=== PATIENT | female | born 1995 | race African-American/Black ===

== ENCOUNTER 2025-03-18 16:03 | Emergency (ER) | payer OTHER, MEDICAID ==
[~2025-03-18] VITALS: Ht 182.9 cm; Wt 73.0 kg
[2025-03-18] MEDS: FAMOTIDINE 20MG/2ML VIAL IV ONE (16:36)
[2025-03-18] MEDS: DIPHENHYDRAMINE 50MG/ML VIAL IV ONE ×2 (16:36→21:59)
[2025-03-18] MEDS: METHYLPREDNISOLONE SOD SUCC 125MG/2ML (ACT-O-VIAL) IV ONE (16:37)
[2025-03-18 16:51] LABS: BASOPHILS % 0.3 % (0.0-2.0); EOSINOPHILS % 1.1 % (0.0-5.0); HEMATOCRIT. 35.4 % (36.0-48.0); HEMOGLOBIN. 11.3 g/dL (12.0-16.0); LYMPHOCYTES % 39.4 % (20.0-50.0); MEAN PLATELET VOLUME 7.9 fl (7.4-10.4); MONOCYTES % 7.0 % (2.0-8.0); NEUTROPHILS % 52.2 % (40.0-76.0); PLATELET 269 x1000/uL (130-400); RED BLOOD CELL COUNT 4.55 mill/uL (4.2-5.4); RED CELL DISTRIBUTION WIDTH 14.0 % (11.6-14.6)
[2025-03-18 16:59] LABS: HCG SCREEN NEGATIVE
[2025-03-18 17:01] LABS: CREATININE 0.8 mg/dL (0.6-1.0); UREA NITROGEN BLOOD 9 mg/dL (9-23)
[2025-03-18] MEDS: SODIUM CHLORIDE 0.9% 1,000 ML IV ONE ×2 (17:28→22:17)
[2025-03-18 18:00] VITALS: TEMP 37.1
[2025-03-18] MEDS: ALBUTEROL (0.083%) 2.5MG/3ML NEB HHN ONE (19:39)
[2025-03-18 19:41] VITALS: PULSE 101; RESP 16; O2SAT 99
[2025-03-18] MEDS ORDERED: FAMO-135 MT (20:24)
[2025-03-18] MEDS ORDERED: P50 MT (20:24)
[2025-03-18] MEDS ORDERED: DIPH25CA83 MT (20:24)
[2025-03-18] MEDS ORDERED: HYDR28.485 RC (20:24)
[2025-03-18] MEDS ORDERED: EPIN0.3P3 IM (20:24)
[2025-03-18] MEDS ORDERED: TRIMO EACHEYE (20:36)
[2025-03-18] MEDS ORDERED: CEPH500T MT (20:36)
[2025-03-18 23:04] VITALS: BP 117/72; PULSE 117; RESP 20; O2SAT 100
[2025-03-19] MEDS ORDERED: ERYT1OIN6 EACHEYE (00:11)
== END 2025-03-18 23:09 | disposition home or self-care (01) ==
LOC: ER 16:03
DX: T78.40XA Allergy, unspecified, initial encounter (principal); G43.909 Migraine, unspecified, not intractable, without status migrainosus; Z88.1 Allergy status to other antibiotic agents; Z88.2 Allergy status to sulfonamides; Z79.899 Other long term (current) drug therapy; X58.XXXA Exposure to other specified factors, initial encounter
CPT/HCPCS: 80048; 84703; 85025; 36415; 71045; 94640; 98960; 96361; 96374; 96375; 96376; 99284; J1200; J1308; J2919; Z7610 ×4; J7030; 94070; 94664